=== PATIENT | male | born 1990 | race African-American/Black ===

== ENCOUNTER 2023-04-16 23:53 | Emergency (ER) | payer SELFPAY ==
[2023-04-16] MEDS ORDERED: Lidocaine 2% with EPINEPHrine 1:100,000 20 ML MDV INFILT ONE (23:54)
[2023-04-17] MEDS ORDERED: Diphtheria,Pertussis(Acell),Tetanus Vaccine 0.5 ML Syringe IM ONE (00:13)
[2023-04-17] MEDS ORDERED: LORazepam 2 MG/ML SDV IM ONE (00:20)
== END 2023-04-17 00:38 ==
LOC: FB.ED 23:53
DX: S21.132A Puncture wound without foreign body of left front wall of thorax without penetration into thoracic cavity, initial encounter (principal); Z23 Encounter for immunization; W26.8XXA Contact with other sharp object(s), not elsewhere classified, initial encounter
CPT/HCPCS: 12002; 71045; 90471; 90715; 96372; 99283; 99283-25; J2060